=== PATIENT | female | born 1955 | race Caucasian/White ===

== ENCOUNTER → 2019-02-07 10:25 | Outpatient (CLI) | payer MEDICARE, SELFPAY ==
--- NOTE | 2019-02-07 10:29 | CA_ITS ---
APPROVED REPORT EXAM: Comprehensive 2D, Doppler, and color-flow Echocardiogram Cooking Teacher: Brook Palmer RT(R) Ht: 5 ft 5 in Wt: 263lbs BSA: 2.22 BP: 130/80 mmHg Indications: SOA, CP, Palpitations, edema, HTN, SOB, BEVERLY, obesity, family history of heart disease. 2D Dimensions IVSd 1.30 cm F: 0.6-1.0 LVEF (Visual) 56.20 % PWd 1.20 cm F: 0.6 - 1.0 LVDd 3.50 cm F: 3.9 - 5.3 LVDs 2.50 cm F: 2.2 - 3.5 LVOT 2.10 cm (M/F) 1.5-2.5 M-Mode Dimensions LA Diam 3.50 cm (1.9-4.0) Ao Diam 3.00 cm (2.0-3.7) AV Cusp 2.20 cm (1.5-2.6) LV Diastology E/A Ratio 1.1 MED E' 7.90 (< 7 cm/sec) E'/MED E' Ratio 11.70 (>14) LAT E' 15.00 (<10 cm/sec) E/LAT E' Ratio 6.20 (>14) Mitral Valve MV E Max Jack. 92.30 (40-130 cm/s) MV A Velocity 80.50 (40-130 cm/s) E/A Ratio 1.10 Left Ventricle Left atrium is mildly enlarged, left ventricle is normal size, mild concentric left ventricular hypertrophy, visually estimated ejection fraction 55% with no regional wall motion abnormality. There is abnormal septal motion. Diastolic parameters are inconclusive. Right Ventricle Right atrium and right ventricular normal size and contractility. Aortic Valve Aortic valve is minimally thickened and fibrosed, there is no aortic stenosis aortic insufficiency. Mitral Valve Mitral valve is grossly normal, there is mild mitral regurgitation Tricuspid Valve Tricuspid valve is grossly normal, there is mild tricuspid regurgitation. Pulmonic Valve Pulmonic valve is poorly visualized. Great Vessels Aortic root is normal size. Pericardium No significant pericardial effusion noted. Conclusion 1. Mildly enlarged left atrium, normal left ventricular size, mild concentric left ventricular hypertrophy, visually estimated ejection fraction 50%, there is abnormal septal motion. Diastolic parameters are inconclusive. 2. Mild mitral and tricuspid regurgitation. 3. No significant pericardial effusion noted. Electronically signed by : Ramesh Fink, 02/08/2019 13:12:15
== END ==
PROVIDERS: PCP Family Medicine; Visit Provider Urology
DX: R00.1 Bradycardia, unspecified (principal); I44.7 Left bundle-branch block, unspecified
CPT/HCPCS: 93306

== ENCOUNTER → 2019-02-13 14:22 | Outpatient (CLI) | payer MEDICARE, SELFPAY | PROVIDERS: PCP Family Medicine; Visit Provider Urology | DX: R00.1 Bradycardia, unspecified (principal); R00.2 Palpitations | CPT/HCPCS: 93270 ==

== ENCOUNTER → 2019-03-09 13:35 | Outpatient (CLI) | payer MEDICARE, SELFPAY | PROVIDERS: PCP Family Medicine; Visit Provider Urology | DX: G47.33 Obstructive sleep apnea (adult) (pediatric) (principal); R06.83 Snoring; R40.0 Somnolence | CPT/HCPCS: G0399 ==

== ENCOUNTER → 2019-06-12 16:08 | Outpatient (CLI) | payer MEDICARE, SELFPAY ==
[2019-06-12 20:03] LABS: Ferritin 95 ng/mL (8-388)
== END ==
PROVIDERS: Visit Provider Nurse Practitioner Family
DX: E83.10 Disorder of iron metabolism, unspecified (principal); G25.81 Restless legs syndrome
CPT/HCPCS: 36415; 82728

== ENCOUNTER → 2019-06-27 11:39 | Outpatient (CLI) | payer MEDICARE, SELFPAY ==
--- NOTE | 2019-06-27 11:42 | NM_ITS ---
APPROVED REPORT Exam: Nuclear Stress Test Indication: CAD, LBBB, OBESITY, HTN, HYPERLIPIDEMIA, ABN EKG, PALPITATATIONS Patient Location: ad, lbb, Stress Tech: Princess Zamora NM Tech:Paz Franklin ARRT RT (R)(N)(M) Ht: 5 ft 5 in Wt: 262 lbs Bra Size: 46D HR: 54 bpm BP: 136/68 mmHg BSA: 2.22 m2 BMI: 43.5 History: CAD, LBBB, OBESITY, HTN, HYPERLIPIDEMIA, ABN EKG, PALPITATATIONS Procedure: Patient received a 0.4 mg of intravenous Lexiscan, resting heart rate 54 bpm, resting blood pressure 136/68 mmHg, with Lexiscan maximum heart rate achived was 81 bpm which is % of the maximum predicted heart rate and blood pressure was 111/58 mmHg. With Lexiscan, patient denied any complaint of chest pain. Electrocardiogram Resting electrocardiogram showed sinus rhythm with a bundle branch block, with Lexiscan less than 1.[address] segment depression noted from the baseline EKG. The EKG portion of the Lexiscan is nondiagnostic due to baseline abnormal EKG. Cardiac Stress and Resting SPECT Images: Cardiac Stress and Resting SPECT images were obtained using technetium 99m Myoview 31.6 mCi stress and 10.57 mCi at rest. Gated SPECT with analysis of segmental wall motion and calculation of the ejection fraction also done. Cardiac stress and resting SPECT images show partially reversible defect involving the anterior, anterior apical and apical wall consistent with area of myocardial scarring mixed with ischemia. Computer derived ejection fraction is 45% with moderate anterior and anterior apical wall hypokinesis. Right ventricle is mildly enlarged with normal contractility. Conclusion: 1. The EKG portion of the Lexiscan Myoview is nondiagnostic. 2. Scintigraphic evidence of mixed ischemia and scar involving the anterior and anterior apical wall, computer derived ejection fraction 45% with segmental wall motion abnormalities described above, right ventricle is mildly enlarged with normal contractility. 3. Abnormal Lexiscan Myoview study. Electronically signed by : Ramesh Fink, 06/28/2019 15:14:42
--- NOTE | 2019-06-27 11:42 | CA_ITS ---
APPROVED REPORT Exam: Pharmacologic Technologist: Princess Zamora Ht: 5 ft 5 in Wt: 262 lbs BSA: 2.22 m2 HR: 54 bpm BP: 136/68 mmHg Indications: Left bundle branch block Medical History Medications: Furosemide (LASIX),,,,, Losartan,,,,, Diclofenac,,,,, SpirOnolactone,,,,, ArthrOTECh,,,,, Ropinerole,,,,, Stress Test Details Test: LEXISCAN HR Resting HR: 56 bpm Max Heart Rate (APMHR): 155 bpm Max HR Achieved: 85 bpm Target HR (85% APMHR): 131 bpm % of APMHR: 54 Recovery HR: 75 bpm BP Resting BP: 136.0/68.0 mmHg Max BP: 136.0/68.0 mmHg Recovery BP: 129.0/54.0 mmHg ECG Clinical Exercise duration: 04:00 min Highest Stage Achieved: Exercise capacity: 1.0 METs Stress ECG Conclusion Resting ECG: Sinus bradycardia Symptoms: Mild malaise, light-headedness. No chest pain. Arrhythmias/Ectopy: Occasional PVC. Brief episode (six seconds) sinus bradycardia high 40's in late recovery. ST-T Changes: Exaggeration of baseline ST-T abnormalities. Conclusion: Non-diagnostic Lexiscan stress. Myoview images reported separately. Test Summary REST . . . . . . . Resting REST 10:55 . . 56 . 136/ 68 . . Stage 1 . . . . . . . Myoview Injected Stage 1 01:00 . . 78 . . . . Stage 2 01:00 . . 77 . . . . Stage 3 01:00 . . 76 . 111/ 58 . . Stage 4 01:00 . . 69 . 105/ 59 . Stop exercise at 04:00 RECOVERY 01:00 . . 77 . 107/ 52 . . RECOVERY 02:00 . . 71 . 107/ 52 . . RECOVERY 03:00 . . 64 . 107/ 52 . . RECOVERY 04:00 . . 70 . 102/ 60 . . RECOVERY 05:00 . . 64 . 102/ 60 . . RECOVERY 06:00 . . 66 . 102/ 60 . . RECOVERY 07:00 . . 69 . 120/ 54 . . RECOVERY 08:00 . . 49 . 120/ 54 . . RECOVERY 09:00 . . 68 . 129/ 54 . . RECOVERY 09:18 . . 67 . 129/ 54 . . Electronically signed by : Ramesh Fink, 06/28/2019 15:12:08
--- NOTE | 2019-06-27 14:54 | HMH.ITSHM ---
Current Home Medications as stated by this patient Danae Narayan or disability representative. []losartan spironolactone furosemide [employer] ropinerole
== END ==
PROVIDERS: PCP Family Medicine; Visit Provider Urology
DX: R00.1 Bradycardia, unspecified; R00.2 Palpitations; I50.30 Unspecified diastolic (congestive) heart failure; R94.31 Abnormal electrocardiogram [ECG] [EKG]; E78.5 Hyperlipidemia, unspecified; G47.33 Obstructive sleep apnea (adult) (pediatric)
CPT/HCPCS: 78452; 93017; A9502; J2785

== ENCOUNTER 2019-10-16 08:27 | Day surgery (SDC) | payer MEDICARE, SELFPAY ==
[2019-10-16] VITALS (10 sets, daily range): BP systolic 98–151; BP diastolic 43–74; PULSE 46–58; RESP 16–20; TEMP 36.6; O2SAT 90–99; BMI 44.4
--- NOTE | 2019-10-16 | IR_ITS ---
APPROVED REPORT Patient Location: Outpatient PROCEDURES Left heart catheterization Left ventriculogram Selective coronary angiogram INDICATION High risk abnormal Myoview with abnormal echocardiogram Informed consent was obtained prior to the procedure. COMPLICATIONS None Estimated Blood Loss: less than 10 ml TECHNIQUE One percent lidocaine used to anesthetize the right anterior aspect of the wrist. The right radial artery was accessed via the Seldinger technique. A 6 Nepali sheath was placed in the right radial artery. 2.5 mg of verapamil, 800 mcg of nitroglycerin, 1mg Lidocaine and 5000 U Heparin were given through the arterial sheath. The trap catheter was also used to perform left heart catheterization, left ventriculogram and selective coronary angiogram. At the end of the procedure the sheath was removed good hemostasis was achieved using Traclet band, patient was transferred to the postop holding area in stable condition. ANGIOGRAPHIC RESULTS The left main artery Normal The left anterior descending artery Normal The circumflex artery Normal The right coronary artery Codominant mild luminal irregularities 10% The GARDNER ventriculogram reveals Ejection fraction 45% with anterior wall hypokinesis The left ventricular end-diastolic pressure Severely elevated at 30 to 35 mmHg IMPRESSION Nonischemic cardiomyopathy as described above Severely elevated LVEDP PLAN 1. Medical management 2. Loop diuretics combined with VIOLETA inhibitors beta-blockers 3. Weight loss 4. Valuation of sleep apnea 5. LDL less than 55 Electronically signed by : Marko Partida, 10/16/2019 12:15:02
[2019-10-16 09:02] LABS: Basophils # 0.1 K/mm3 (0-0.2); Basophils % 0.8 % (0.1-2.0); Eosinophils # 0.2 K/mm3 (0.0-0.4); Eosinophils % 2.4 % (0.1-12.0); Hematocrit 41.4 % (37.0-47.0); Hemoglobin 13.7 g/dL (12.2-16.2); Lymphocytes # 3.1 K/mm3 (0.7-4.5); Lymphocytes % 38.6 % (10-50); Mean Corpuscular HGB Conc 33.1 g/dL (31.8-35.4); Mean Corpuscular Hemoglobin 31.3 pg (27.0-31.2); Mean Corpuscular Volume 94.6 fl (81-99); Mean Platelet Volume 7.4 fl (7.4-10.4); Monocytes # 0.5 K/mm3 (0.1-1.0); Monocytes % 5.6 % (1.7-9.3); Neutrophils # 4.2 K/mm3 (1.8-7.8); Neutrophils % 52.7 % (37.0-80.0); Platelet Count 250 K/mm3 (142-424); Red Blood Count 4.38 M/mm3 (4.20-5.40); Red Cell Distribution Width 13.6 % (11.5-17.5)
[2019-10-16 09:06] LABS: Chloride 104 mmol/L (98-107); Sodium 138 mmol/L (136-145)
[2019-10-16 09:07] LABS: Potassium 3.7 mmoL/L (3.5-5.1)
[2019-10-16 09:09] LABS: Blood Urea Nitrogen 28 mg/dl (7-17); Creatinine Clearance Estimated 50 mL/min (50-200); Estimated Glomerular Filt Rate 55 ml/min (>60); GFR (African American) 67 ML/MIN (>60)
[2019-10-16 09:10] LABS: Anion Gap 6.7 mEq/L (5-15); Calcium 9.1 mg/dl (8.4-10.2); Carbon Dioxide 31 mmol/L (22.0-30.0); Glucose 103 mg/dl (74-100)
== END 2019-10-16 14:43 | disposition home or self-care (01) ==
LOC: CATHLAB 08:28
PROVIDERS: PCP Family Medicine; Visit Provider Internal Medicine
DX: I11.0 Hypertensive heart disease with heart failure (principal); I50.32 Chronic diastolic (congestive) heart failure; I42.8 Other cardiomyopathies; I44.7 Left bundle-branch block, unspecified
CPT/HCPCS: 80048; 85025; 93458; 99152; C1725; C1769; J1644; Q9967

== ENCOUNTER → 2020-11-20 14:42 | Outpatient (CLI) | payer MEDICARE, SELFPAY ==
--- NOTE | 2020-11-20 14:44 | CA_ITS ---
APPROVED REPORT EXAM: Comprehensive 2D, Doppler, and color-flow Echocardiogram Air Tube Releaser: Cele Francis CRT Ht: 5 ft 5 in Wt: 270lbs BSA: 2.25 BP: 135/73 mmHg Indications: Chest Pain, CAD, Cardiomyopathy, FRANCISCO, DD, HTN, HLD, Edema, obesity, SOB, Palp 2D Dimensions LVOT 2.01 cm (M/F) 1.5-2.5 LA Volume 46.40 mL LA Volume Index 20.60 mL/m2 (M/F) 16-34 M-Mode Dimensions RVDd 2.57 cm (0.9-2.6) LA Diam 3.57 cm (1.9-4.0) LVDd 5.79 cm (3.5-5.7) Ao Diam 3.77 cm (2.0-3.7) LVDs 2.69 cm (3.5-5.7) IVSd 1.25 cm (0.6-1.1) PWd 0.83 cm (0.6-1.1) EF (Teich) 83.80% FS 53.50% EDV (Teich) 165.90 mL TAPSE 2.45 (<1.7) ESV (Teich) 26.80 mL LV Diastology E Decel Time 323.00 (160-240 msec) E/A Ratio 0.96 MED E' 6.20 (< 7 cm/sec) MED A' 9.20 cm/s E'/MED E' Ratio 10.26 (>14) LAT E' 8.90 (<10 cm/sec) LAT A' 11.10 cm/s E/LAT E' Ratio 7.15 (>14) Aortic Valve AO Peak GR. 10.70 mmHg Mitral Valve MV A Velocity 66.00 (40-130 cm/s) E/A Ratio 0.96 MV Decel. Time 323.00 (160-240 ms) Pulmonary Valve PV Peak Velocity 121.00 (50-150 cm/s) Tricuspid Valve TR P. Velocity 228.00 cm/s RAP Estimate 10.00 mmHg RVSP 30.80 mmHg Left Ventricle Technically difficult study because of the patient fact in poor acoustic windows. Left atrium is mildly enlarged, left ventricle is normal size, mild concentric left ventricular hypertrophy, visually estimated ejection fraction 50% with no regional wall motion abnormality, diastolic parameters are inconclusive. Right Ventricle Right atrium and right ventricle mildly enlarged with normal contractility. Aortic Valve Aortic valve is minimally thickened and calcified, there is no aortic stenosis or aortic insufficiency. Mitral Valve Mitral valve grossly normal, there is trace mitral regurgitation. Tricuspid Valve Tricuspid grossly normal, there is trace tricuspid regurgitation, tricuspid regurgitation jet velocity is inadequate for calculation of the right ventricular systolic pressure. Pulmonic Valve Pulmonic valve is poorly visualized. Great Vessels Aortic root is normal size. Pericardium No significant pericardial effusion noted. Conclusion 1. Technically difficult study because of the patient fact in poor acoustic windows. Biatrial enlargement, normal left ventricular size, mild concentric left ventricular hypertrophy, visually estimated ejection fraction 50% with no regional wall motion abnormality, diastolic parameters are inconclusive. 2. Mildly enlarged right ventricle with normal contractility. 3. Mild mitral and tricuspid regurgitation. 4. No significant pericardial effusion noted. Electronically signed by : Ramesh Fink, 11/20/2020 16:01:17
== END ==
PROVIDERS: PCP Family Medicine; Visit Provider Urology
DX: E78.5 Hyperlipidemia, unspecified (principal); I10 Essential (primary) hypertension; I25.10 Atherosclerotic heart disease of native coronary artery without angina pectoris; I42.9 Cardiomyopathy, unspecified; I44.7 Left bundle-branch block, unspecified; R00.1 Bradycardia, unspecified; R06.00 Dyspnea, unspecified; R94.30 Abnormal result of cardiovascular function study, unspecified; R94.31 Abnormal electrocardiogram [ECG] [EKG]
CPT/HCPCS: 93306

== ENCOUNTER → 2021-12-14 13:53 | Outpatient (CLI) | payer MEDICARE, SELFPAY ==
[2021-12-14 15:13] LABS: Basophils % 0.4 % (0.1-2.0); Eosinophils % 0.2 % (0.1-12.0); Hematocrit 44.3 % (37.0-47.0); Hemoglobin 13.7 g/dL (12.2-16.2); Lymphocytes # 1.5 K/mm3 (0.7-4.5); Lymphocytes % 14.9 % (10-50); Mean Corpuscular HGB Conc 30.8 g/dL (31.8-35.4); Mean Corpuscular Hemoglobin 30.1 pg (27.0-31.2); Mean Corpuscular Volume 97.8 fl (81-99); Mean Platelet Volume 7.5 fl (7.4-10.4); Monocytes # 0.5 K/mm3 (0.1-1.0); Monocytes % 4.6 % (1.7-9.3); Neutrophils # 8.2 K/mm3 (1.8-7.8); Neutrophils % 79.8 % (37.0-80.0); Platelet Count 317 K/mm3 (142-424); Red Blood Count 4.53 M/mm3 (4.20-5.40); Red Cell Distribution Width 13.9 % (11.5-17.5); White Blood Count 10.3 K/mm3 (4.8-10.8)
[2021-12-14 15:49] LABS: Alanine Aminotransferase 35 U/L (12-78); Albumin Level 4.1 g/dl (3.5-5.0); Alkaline Phosphatase 119 U/L (38-126); Anion Gap 10.9 mEq/L (5-15); Aspartate Amino Transferase 28 U/L (14-36); Bilirubin,Direct 0.2 mg/dl (0.0-0.4); Bilirubin,Indirect 0.1 mg/dL (0.0-0.9); Bilirubin,Total 0.3 mg/dl (0.2-1.3); Bilirubin,Unconjugated 0.1 mg/dL (0.0-1.1); Blood Urea Nitrogen 32 mg/dl (7-17); Calcium 9.5 mg/dl (8.4-10.2); Carbon Dioxide 31 mmol/L (22.0-30.0); Chloride 100 mmol/L (98-107); Chol/HDL Ratio 3.5 (1-3.5); Cholesterol 256 mg/dl (140-200); Estimated Glomerular Filt Rate 45 ml/min (>60); GFR (African American) 54 ML/MIN (>60); Glucose 108 mg/dl (74-100); HDL Cholesterol 73 mg/dl (40-60); Magnesium 2.2 mg/dl (1.6-2.3); Potassium 4.9 mmoL/L (3.5-5.1); Sodium 137 mmol/L (136-145); Total Protein,Serum 6.8 g/dl (6.3-8.2); Triglycerides 101 mg/dl (30-150); VLDL Cholesterol 20 mg/dL (0-40)
[2021-12-14 16:05] LABS: Free T4 (Free Thyroxine) 1.07 ng/dl (0.78-2.19)
[2021-12-14 16:21] LABS: Thyroid Stimulating Hormone 0.62 uIU/mL (0.465-4.68)
[2021-12-16 11:20] LABS: Direct LDL Cholesterol 151 mg/dL (100-129)
== END ==
PROVIDERS: PCP Family Medicine; Visit Provider Physician Assistant
DX: E78.2 Mixed hyperlipidemia (principal); I10 Essential (primary) hypertension; I25.10 Atherosclerotic heart disease of native coronary artery without angina pectoris; I42.0 Dilated cardiomyopathy; R25.2 Cramp and spasm; R94.30 Abnormal result of cardiovascular function study, unspecified
CPT/HCPCS: 36415; 80048; 80061; 80076; 83735; 84439; 84443; 85025